=== PATIENT | male | born 1995 | race Caucasian/White ===

== ENCOUNTER 2020-10-30 13:46 | Emergency (ER) | payer OTHER, SELFPAY ==
[2020-10-30 14:58] VITALS: BP 127/75; PULSE 72; RESP 18; O2SAT 98; BMI 29.9
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
== END 2020-10-30 15:59 | disposition home or self-care (01) ==
PROVIDERS: Emergency Provider Emergency Medicine; PCP Internal Medicine
DX: S39.012A Strain of muscle, fascia and tendon of lower back, initial encounter (principal); V43.52XA Car driver injured in collision with other type car in traffic accident, initial encounter; Y93.89 Activity, other specified; Y92.414 Local residential or business street as the place of occurrence of the external cause; Y99.0 Civilian activity done for income or pay
CPT/HCPCS: 99283

== ENCOUNTER 2025-01-19 14:26 | Emergency (ER) | payer OTHER, SELFPAY ==
[2025-01-19 14:35] VITALS: BP 141/63; PULSE 70; RESP 17; TEMP 36.8; O2SAT 98; BMI 25.3
--- NOTE | 2025-01-19 14:39 | ED_ITS ---
HPI - Extremity Problem General Chief complaint: Extremity Injury, Upper Stated complaint: l elbow wrist and fingers numb Time Seen by Provider: 01/19/25 14:42 Source: patient Mode of arrival: ambulatory Limitations: no limitations History of Present Illness ED Provider: Elly Rey NP HPI Narrative: Patient is a 29-year-old male who presents emergency department for evaluation with the past few weeks has been experiencing intermittent pain to the right wrist associated numbness and tingling to the hand. Particularly worse at night and upon awakening. He had purposefully [id number] volar wrist splint has not noticed significant change. 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 Denies use of NSAIDs or acetaminophen. no overt injury Related Data Previous Rx's ?Medication ?Instructions ?Recorded cyclobenzaprine 5 mg tablet 5 mg PO TID PRN muscle spa sm #14 10/30/20 tabs ibuprofen 600 mg tablet 600 mg PO Q6H PRN pain #20 t abs 10/30/20 ibuprofen 600 mg tablet 600 mg PO Q8H PRN pain #30 t abs 01/19/25 Allergies Allergy/AdvReac Type Severity Reaction Status Date / Time SEASONAL ALLERGIES Allergy Unknown UNKNOWN Uncoded 01/19/25 14:38 Review of Systems Review of Systems: Yes all other systems are reviewed and are negative PMFSH Past Medical History Attestation statement: The following information was validated with the patient. Source: old records reviewed Medical History History of fracture of femur Social History Social History Advance Directives: No Advance Directives Information Provided: Yes Do you have a plan to hurt others: No Plan Physical Exam Exam: Exam: Appearance: Alert.?Oriented to person, place and time. No acute distress.?Normal affect. CVS: Heart sounds normal. Normal heart rate and rhythm.? Pulses normal.?? Respiratory: No respiratory distress.? Lung sounds clear to auscultation bilaterally?? Skin: Skin warm and dry.? Normal skin color.? Extremities: No extremity edema.? 2+ radial pulse. Positive phalen sign. Neuro: Moves all extremities spontaneously. Sensation intact bilaterally. Vital Signs: Vital Signs: Last Vital Signs Temp 98.3 F 01/19/25 14:35 Pulse 70 01/19/25 14:35 Resp 17 01/19/25 14:35 BP 141/63 H 01/19/25 14:35 Pulse Ox 98 01/19/25 14:35 O2 Del Method Room Air 01/19/25 14:35 BMI result Body Mass Index 25.3 Medical Decision Making Medical Decision Making [facility] Narrative: Patient is a 29year old male who presents emergency department for evaluation of atraumatic right wrist pain with associated numbness and tingling worse at night AI. History and physical examination are most concerning for carpal tunnel syndrome. No deformity or injury that would warrant XR imaging to suggest a fracture or dislocation. No associated neck or upper extremity pain to suggest cervical radiculopathy. No weakness, neurological deficits that would favor CVA. No erythema or warmth to the wrist joint to suggest septic arthritis. Reviewed conservative treatment, outpatient follow-up with primary care provider, given return precautions. All questions answered Differential Diagnosis Differential Diagnoses: The differential diagnosis associated with the presentation includes (See narrative above) External Record Review External record reviewed: Outpatient record Prescription Management I considered prescription management with: Pain Medication Discharge Plan Discharge Clinical Impression: Carpal tunnel syndrome on right Patient Disposition: Home, Self-Care Instructions: Carpal Tunnel Syndrome (DC) Additional Instructions: Refrain from repetitive activities of the hand/wrist as this would provoke the symptoms. Use the wrist splint that you purchased at night. You can take ibuprofen 200 mg, 3 tablets (600mg) every 6-8 hours as needed for pain, in addition to Tylenol 500 mg, 2 tablets (1,000mg) every 4-6 hours as n eeded for pain, but not to exceed 3 doses daily (3,000mg).? Follow-up with primary care provider for further evaluation as needed. Prescriptions: New ibuprofen 600 mg tablet 600 mg PO Q8H PRN (Reason: pain) Qty: 30 0RF No Action cyclobenzaprine 5 mg tablet 5 mg PO TID PRN (Reason: muscle spasm) Qty: 14 0RF Rx Instructions: This medication causes drowsiness so no driving for 8 hours after taking ibuprofen 600 mg tablet 600 mg PO Q6H PRN (Reason: pain) Qty: 20 0RF Referrals: King Lott III, MD [Primary Care Provider, Medical] Stand Alone Forms: Work/School Release Discharge Date/Time: 01/19/25 15:01 Print Language: Latvian
== END 2025-01-19 15:01 | disposition home or self-care (01) ==
PROVIDERS: Emergency Provider Emergency Medicine Emergency Medical Services; PCP Internal Medicine
DX: G56.01 Carpal tunnel syndrome, right upper limb (principal); M25.531 Pain in right wrist; R20.0 Anesthesia of skin
CPT/HCPCS: 99281; 99283